=== PATIENT | female | born 1955 | race Caucasian/White ===

== ENCOUNTER 2020-03-28 10:45 | Outpatient (CLI) | payer BC ==
--- NOTE | 2020-03-28 11:25 | RAD ---
2 VIEW CHEST: Date: 03/28/2020 HISTORY: COVID-positive. Chest pain. Shortness of breath. FINDINGS: Lungs appear clear. No infiltrate identified. Heart and mediastinum unremarkable. Vascular markings n ormal. IMPRESSION: No evidence of infiltrate. POS: AGW
== END 2020-03-28 10:46 | disposition home or self-care (01) ==
LOC: NAV RAD 10:45
PROVIDERS: ATTEND Family Medicine
DX: U07.1 COVID-19 (principal)
CPT/HCPCS: 71046

== ENCOUNTER 2020-06-06 17:13 | Outpatient (CLI) | payer OTHER ==
--- NOTE | 2020-06-06 19:36 | RAD ---
SCOLIOISIS STUDY: History: Scoliosis as a child. FINDINGS: There is approximately 22 degrees dextroscoliosis of the lumbar vertebral column. There is approximately 18 degrees of levoscoliosis of the lower thoracic vertebral column. There is s ome motion artifact. IMPRESSION: Scoliosis as above. POS: RRE
== END 2020-06-06 17:14 | disposition home or self-care (01) ==
LOC: NAV RAD 17:13
PROVIDERS: ATTEND Chiropractor
DX: M41.9 Scoliosis, unspecified (principal)
CPT/HCPCS: 72081

== ENCOUNTER 2021-06-19 13:40 | Outpatient (CLI) | payer SELFPAY ==
[2021-06-19 21:57] LABS: Hemoglobin A1c 7.5 % (4.0-6.0)
[2021-06-19 22:06] LABS: ALT (SGPT) 14 U/L (8-55); AST (SGOT) 13 U/L (5-34); Albumin 4.1 g/dL (3.4-4.8); Alkaline Phosphatase 88 U/L (40-110); Anion Gap 13 mmol/L (10-20); BUN (Urea Nitrogen) 12 mg/dL (9.8-20.1); Bilirubin, Total 0.4 mg/dL (0.2-1.2); Calc. Creatinine Clearance 0 mL/min (70-130); Calcium 9.4 mg/dL (7.8-10.44); Carbon Dioxide 26 mmol/L (23-31); Cardiac Risk 3.3 (Less than 4.5); Chloride 106 mmol/L (98-107); Cholesterol 199 mg/dl (< 200 Desired); Glucose 115 mg/dL (80-115); HDL Cholesterol 60 mg/dL (>60 Neg Risk); LDL Cholesterol, Calculated 106 mg/dL; Potassium 4.4 mmol/L (3.5-5.1); Protein, Total 7.1 g/dL (5.8-8.1); Sodium 141 mmol/L (136-145); Triglycerides 163 mg/dL (Less than 150)
[2021-06-19 22:14] LABS: Creatinine, Urine 227.58 mg/dL (47-110); Microalbumin Urine 1.1 mg/dL (0.5-50.0); Microalbumin/Creat Ratio 4.8 mg/g (Less than 30)
[2021-06-19 22:52] LABS: #Basophils 0.1 thou/uL (0.0-0.2); #Eosinphils 0.2 thou/uL (0.0-0.7); #Lymphocytes 2.8 thou/uL (1.20-3.40); #Monocytes 0.4 thou/uL (0.11-0.59); #Neutrophils 4.1 thou/uL (1.40-6.50); %Eosinophils 2.2 % (0.0-10.0); %Lymphocytes 36.7 % (21.0-51.0); %Monocytes 5.5 % (0.0-10.0); %Neutrophils 54.7 % (42.0-75.0); Hemoglobin 14.5 g/dL (12.0-16.0); Mean Corpuscular HGB CONC 33.5 g/dL (32.0-36.0); Mean Corpuscular Hemoglobin 29.9 pg (27.0-31.0); Mean Corpuscular Volume 89.1 fL (78.0-98.0); Mean Platelet Volume 8.5 fL (7.4-10.4); Platelet Count 252 thou/uL (130-400); RBC Distribution Width 11.7 % (11.5-14.5); Red Blood Cell (RBC) Count 4.85 mill/uL (4.20-5.40); White Blood Cell (WBC) Count 7.6 thou/uL (4.8-10.8)
== END 2021-06-19 13:41 | disposition home or self-care (01) ==
LOC: NAV LAB 13:40
PROVIDERS: ATTEND Family Medicine
DX: E78.2 Mixed hyperlipidemia (principal); E11.9 Type 2 diabetes mellitus without complications
CPT/HCPCS: 36415; 80050; 80061; 82043; 83036

== ENCOUNTER 2022-05-23 13:07 | Outpatient (CLI) | payer OTHER | END 2022-05-23 13:08 | disposition home or self-care (01) | LOC: NAV RAD 13:07 | PROVIDERS: ATTEND Family Medicine | DX: M54.2 Cervicalgia (principal); M47.812 Spondylosis without myelopathy or radiculopathy, cervical region | CPT/HCPCS: 72040 ==

== ENCOUNTER 2022-12-24 12:57 | Outpatient (CLI) | payer MEDICARE | END 2022-12-24 12:58 | disposition home or self-care (01) | LOC: NAV RAD 12:57 | DX: M25.552 Pain in left hip (principal) ==

== ENCOUNTER 2023-10-11 16:03 | Emergency (ER) | payer MEDICARE ==
[2023-10-11] MEDS ORDERED: Ibuprofen 200 MG TAB ONE (16:41)
[2023-10-11] MEDS ORDERED: Ondansetron ODT 4 MG TAB ONE (16:41)
[2023-10-11 17:35] LABS: Bilirubin Negative (Negative); Blood, Urine Negative (Negative); Clarity Clear (Clear); Glucose, Urine (Dipstick) Negative (Negative); Ketone, Urine Negative (Negative); Leukocyte Negative (Negative); Nitrite Negative (Negative); Protein, Urine (Dipstick) Negative (Neg-Trace); Specific Gravity, Urine 1.015 (1.005-1.030); Urobilinogen 0.2 mg/dL (Less than 2)
[2023-10-11 17:37] LABS: CAUTI Indications for Culture Pelvic or flank pain
[2023-10-11 17:38] LABS: Bacteria/HPF 1+ HPF (None Seen); RBC/HPF 0-3 HPF (0-3); Urine Culture Reflex No No; WBC/HPF None Seen HPF (0-3)
== END 2023-10-11 18:08 | disposition home or self-care (01) ==
LOC: NAV ERS 16:03
DX: U07.1 COVID-19 (principal); R10.9 Unspecified abdominal pain; E11.9 Type 2 diabetes mellitus without complications; Z79.84 Long term (current) use of oral hypoglycemic drugs
CPT/HCPCS: 81001; 87635; 87804; 99284; Q0162